=== PATIENT | male | born 1975 | race Caucasian/White ===

== ENCOUNTER 2017-07-17 19:55 | Emergency (ER) | payer OTHER ==
[~2017-07-17] VITALS: Ht 170.2 cm; Wt 72.6 kg
[~2017-07-17 19:55] MED LIST: HYDROCHLOROTH12.5 M1 PO; IBUPROFEN 800800 M1 PO; LISINOPRIL-HCT1 EACH PO; NORCO 5-325 TA1 EACH PO; TORADOL 10 MG T10 MG PO
[2017-07-17] MEDS ORDERED: MEDROLDOSEPACK PO (20:32)
[2017-07-17] MEDS ORDERED: HYDROXYZINE HCL25 M1 PO (20:32)
[2017-07-17 20:41] VITALS: BP 144/90
== END 2017-07-17 20:41 | disposition home or self-care (01) ==
LOC: M.ERS 19:55
DX: L23.9 Allergic contact dermatitis, unspecified cause (principal); I10 Essential (primary) hypertension; F17.210 Nicotine dependence, cigarettes, uncomplicated; F10.99 Alcohol use, unspecified with unspecified alcohol-induced disorder; Z98.890 Other specified postprocedural states

== ENCOUNTER 2017-12-28 04:40 | Emergency (ER) | payer OTHER ==
[~2017-12-28] VITALS: Ht 170.2 cm; Wt 68.0 kg
[~2017-12-28 04:40] MED LIST changes: +HYDROXYZINE HCL25 M1 PO; +MEDROLDOSEPACK PO
[2017-12-28] MEDS ORDERED: IBUPROFEN (04:49)
[2017-12-28] MEDS ORDERED: ? ANTIBIOTIC (04:49)
[2017-12-28] MEDS ORDERED: PREDNISONE (04:49)
[2017-12-28] MEDS ORDERED: CYCLOBENZAPRINE5 MG PO (06:18)
[2017-12-28] MEDS ORDERED: HYDROCODON-ACE1 EAC7 PO (06:18)
[2017-12-28] MEDS ORDERED: IBUPROFEN 800800 MG PO (06:18)
[2017-12-28 06:30] VITALS: BP 138/101
== END 2017-12-28 06:30 | disposition home or self-care (01) ==
LOC: M.ERS 04:40
DX: S39.012A Strain of muscle, fascia and tendon of lower back, initial encounter (principal); M25.532 Pain in left wrist; I10 Essential (primary) hypertension; F17.210 Nicotine dependence, cigarettes, uncomplicated; V89.2XXA Person injured in unspecified motor-vehicle accident, traffic, initial encounter; Y93.89 Activity, other specified; Y92.89 Other specified places as the place of occurrence of the external cause; Y99.8 Other external cause status